=== PATIENT | female | born 1985 | race Caucasian/White ===

== ENCOUNTER 2016-12-09 08:44 | Emergency (ER) | payer BC ==
[2016-12-09] MEDS ORDERED: HYDROmorphone 1 MG/ML 1 ML SYRINGE IVP STA (09:01)
[2016-12-09] MEDS ORDERED: ONDANSETRON 4 MG/2 ML VIAL IVP STA (09:01)
[2016-12-09] MEDS ORDERED: SODIUM CHLORIDE 0.9% 1,000 ML IV STA ×2 (09:01)
--- NOTE | 2016-12-09 09:09 | ED ---
General Adult HPI - General Chief complaint: Abdominal Pain Stated complaint: RT SIDE FLANK PAIN Time Seen by Provider: 12/09/16 08:55 Source: patient, RN notes reviewed Mode of arrival: ambulatory Limitations: no limitations - History of Present Illness Initial comments: Patient is a 31-year-old female who presents emergency room today with a chief complaint of right upper quadrant pain radiating around to the back. She states it started this morning proxy 7 AM after waking up. She states she was going to get herself a soda pop to drink. She states the pain has been somewhat constant sharp type pain that she currently rates a /10. States never experienced anything similar. She denies any other complaints or associated symptoms. Patient denies any recent fever, chills, shortness of breath, chest pain, nausea or vomiting, numbness or tingling, dysuria or hematuria, constipation or diarrhea, headaches or visual changes, or any other complaints. - Related Data Home Medications Medication Instructions Recorded Confirmed Citalopram Hydrobromide [CeleXA] 20 mg PO HS 12/09/16 12/09/16 Ibuprofen [Motrin] 800 mg PO Q6H PRN 12/09/16 12/09/16 Phentermine HCl [Adipex-P] 37.5 mg PO QAM 12/09/16 12/09/16 Topiramate [Trokendi Xr] 100 mg PO DAILY@1200 12/09/16 12/09/16 Allergies Allergy/AdvReac Type Severity Reaction Status Date / Time No Known Allergies Allergy Verified 12/09/16 08:58 Review of Systems ROS Statement: Those systems with pertinent positive or pertinent negative responses have been documented in the HPI. ROS Other: All systems not noted in ROS Statement are negative. Past Medical History Past Medical History: No Reported History Additional Past Medical History / Comment(s): meningitis History of Any Multi-Drug Resistant Organisms: MRSA Date of last positivie culture/infection: 04/07/2006 MDRO Source:: Unknown Additional Past Surgical History / Comment(s): FACIAL SURGERY, WRIST SURGERY Past Psychological History: No Psychological Hx Reported Smoking Status: Current every day smoker Past Alcohol Use History: Occasional Past Drug Use History: None Reported General Exam - General Exam Comments Initial Comments: General: The patient is awake and alert, in no distress, and does not appear acutely ill. Eye: Pupils are equal, round and reactive to light, extra-ocular movements are intact. No nystagmus. There is normal conjunctiva bilaterally. No signs of icterus. Ears, nose, mouth and throat: There are moist mucous membranes and no oral lesions. Neck: The neck is supple, there is no tenderness or JVD. Cardiovascular: There is a regular rate and rhythm. No murmur, rub or gallop is appreciated. Respiratory: Lungs are clear to auscultation, respirations are non-labored, breath sounds are equal. No wheezes, stridor, rales, or rhonchi. Gastrointestinal: No appearance abdomen. Normal bowel sounds. Abdomen soft on palpation. Patient does have tenderness in the right upper quadrant. Mild tenderness in the right CVA. No rebound tenderness. No guarding. Musculoskeletal: Normal ROM, no tenderness. Strength 5/5. Sensation intact. Pulses equal bilaterally 2+. Neurological: A&O x 3. CN II-XII intact, There are no obvious motor or sensory deficits. Coordination appears grossly intact. Speech is normal. Skin: Skin is warm and dry and no rashes or lesions are noted. Psychiatric: Cooperative, appropriate mood & affect, normal judgment. Limitations: no limitations Course Vital Signs 12/09/16 08:45 Temperature 97.2 F L Pulse Rate 73 Respiratory 18 Rate Blood Pressure 110/76 O2 Sat by Pulse 100 Oximetry Medical Decision Making - Medical Decision Making Patient reexamined at this time shows no signs of distress. Resting comfortably in the stretcher. Ultrasound is negative for any evidence of cholecystitis. Patient's labs been reviewed unremarkable. Results were discussed with the patient. At this time patient feeling comfortable be discharged home advised follow-up the family doctor. Advised return to emergency room if symptoms increase worsen or for any other concerns. - Lab Data Result diagrams: 12/09/16 09:05 12/09/16 09:05 Lab Results 12/09/16 12/09/16 12/09/16 Range/Units 09:05 09:05 09:05 WBC 6.1 (3.8-10.6) k/uL RBC 3.92 (3.80-5.40) m/uL Hgb 12.5 (11.4-16.0) gm/dL Hct 38.5 (34.0-46.0) % MCV 98.1 (80.0-100.0) fL MCH 31.8 (25.0-35.0) pg MCHC 32.4 (31.0-37.0) g/dL RDW 13.4 (11.5-15.5) % Plt Count 295 (150-450) k/uL Neutrophils % 59 % Lymphocytes % 31 % Monocytes % 5 % Eosinophils % 3 % Basophils % 1 % Neutrophils # 3.7 (1.3-7.7) k/uL Lymphocytes # 1.9 (1.0-4.8) k/uL Monocytes # 0.3 (0-1.0) k/uL Eosinophils # 0.2 (0-0.7) k/uL Basophils # 0.0 (0-0.2) k/uL Sodium 140 (137-145) mmol/L Potassium 4.2 (3.5-5.1) mmol/L Chloride 111 H (98-107) mmol/L Carbon Dioxide 21 L (22-30) mmol/L Anion Gap 8 mmol/L BUN 15 (7-17) mg/dL Creatinine 0.84 (0.52-1.04) mg/dL Est GFR (MDRD) Af Amer >60 (>60 ml/min/1.73 sqM) Est GFR (MDRD) Non-Af >60 (>60 ml/min/1.73 sqM) Glucose 77 (74-99) mg/dL Calcium 9.1 (8.4-10.2) mg/dL Total Bilirubin 0.4 (0.2-1.3) mg/dL AST 17 (14-36) U/L ALT 31 (9-52) U/L Alkaline Phosphatase 53 (38-126) U/L Total Protein 6.4 (6.3-8.2) g/dL Albumin 3.9 (3.5-5.0) g/dL Amylase 31 (30-110) U/L Lipase 63 (23-300) U/L Urine Color Urine Appearance (Clear) Urine pH (5.0-8.0) Ur Specific [place] (1.001-1.035) Urine Protein (Negative) Urine Glucose (UA) (Negative) Urine Ketones (Negative) Urine Blood (Negative) Urine Nitrite (Negative) Urine Bilirubin (Negative) Urine Urobilinogen (<2.0) mg/dL Ur Leukocyte Esterase (Negative) Urine RBC (0-5) /hpf Urine WBC (0-5) /hpf Ur Squamous Epith Cells (0-4) /hpf Urine Bacteria (None) /hpf Urine Mucus (None) /hpf Urine HCG, Qual Not Detected (Not Detectd) 12/09/16 Range/Units 09:05 WBC (3.8-10.6) k/uL RBC (3.80-5.40) m/uL Hgb (11.4-16.0) gm/dL Hct (34.0-46.0) % MCV (80.0-100.0) fL MCH (25.0-35.0) pg MCHC (31.0-37.0) g/dL RDW (11.5-15.5) % Plt Count (150-450) k/uL Neutrophils % % Lymphocytes % % Monocytes % % Eosinophils % % Basophils % % Neutrophils # (1.3-7.7) k/uL Lymphocytes # (1.0-4.8) k/uL Monocytes # (0-1.0) k/uL Eosinophils # (0-0.7) k/uL Basophils # (0-0.2) k/uL Sodium (137-145) mmol/L Potassium (3.5-5.1) mmol/L Chloride (98-107) mmol/L Carbon Dioxide (22-30) mmol/L Anion Gap mmol/L BUN (7-17) mg/dL Creatinine (0.52-1.04) mg/dL Est GFR (MDRD) Af Amer (>60 ml/min/1.73 sqM) Est GFR (MDRD) Non-Af (>60 ml/min/1.73 sqM) Glucose (74-99) mg/dL Calcium (8.4-10.2) mg/dL Total Bilirubin (0.2-1.3) mg/dL AST (14-36) U/L ALT (9-52) U/L Alkaline Phosphatase (38-126) U/L Total Protein (6.3-8.2) g/dL Albumin (3.5-5.0) g/dL Amylase (30-110) U/L Lipase (23-300) U/L Urine Color Yellow Urine Appearance Clear (Clear) Urine pH 5.5 (5.0-8.0) Ur Specific [place] 1.014 (1.001-1.035) Urine Protein Negative (Negative) Urine Glucose (UA) Negative (Negative) Urine Ketones Negative (Negative) Urine Blood Negative (Negative) Urine Nitrite Negative (Negative) Urine Bilirubin Negative (Negative) Urine Urobilinogen <2.0 (<2.0) mg/dL Ur Leukocyte Esterase Trace H (Negative) Urine RBC <1 (0-5) /hpf Urine WBC 2 (0-5) /hpf Ur Squamous Epith Cells 5 H (0-4) /hpf Urine Bacteria Rare H (None) /hpf Urine Mucus Rare H (None) /hpf Urine HCG, Qual (Not Detectd) Disposition Clinical Impression: Abdominal pain Disposition: HOME SELF-CARE Condition: Good Instructions: Abdominal Pain (ED) Additional Instructions: Please use medication as discussed. Please follow-up with family doctor in the next 2 days of symptoms have not improved. Please return to emergency room if the symptoms increase or worsen or for any other concerns. Referrals: Luc Salas MD [Primary Care Provider] - 1-2 days Time of Disposition: 10:28
[2016-12-09 09:24] LABS: Basophils % (A) 1 %; CH 32.5; CHCM 33.3; Eosinophils # (A) 0.2 k/uL (0-0.7); Eosinophils % (A) 3 %; HCT 38.5 % (34.0-46.0); HDW 2.36; HGB 12.5 gm/dL (11.4-16.0); Luc # (Auto) 0.12; Luc % (Auto) 2; Lymphocytes # (A) 1.9 k/uL (1.0-4.8); Lymphocytes % (A) 31 %; MCH 31.8 pg (25.0-35.0); MCHC 32.4 g/dL (31.0-37.0); MCV 98.1 fL (80.0-100.0); Mean Platelet Volume 7.6; Monocytes # (A) 0.3 k/uL (0-1.0); Monocytes % (A) 5 %; Neutrophils # (A) 3.7 k/uL (1.3-7.7); Neutrophils % (A) 59 %; RBC 3.92 m/uL (3.80-5.40); RDW 13.4 % (11.5-15.5); WBC 6.1 k/uL (3.8-10.6); WBC (Perox) 6.65
[2016-12-09 09:33] LABS: ALT 31 U/L (9-52); AST 17 U/L (14-36); Alkaline Phosphatase 53 U/L (38-126); Amylase 31 U/L (30-110); Anion Gap 8 mmol/L; Appearance,Urine Clear (Clear); Bacteria,Urine Rare /hpf; Bilirubin,Urine Negative (Negative); Blood Urea Nitrogen 15 mg/dL (7-17); Calcium 9.1 mg/dL (8.4-10.2); Carbon Dioxide 21 mmol/L (22-30); Chloride 111 mmol/L (98-107); Glucose 77 mg/dL (74-99); Glucose,Urine (UA) Negative (Negative); Ketones,Urine Negative (Negative); Leukocyte Esterase,Urine Trace (Negative); Mucus,Urine Rare /hpf; Nitrite,Urine Negative (Negative); Non-African American GFR(MDRD) >60 (>60 ml/min/1.73 sqM); PH, Urine 5.5 (5.0-8.0); Particle Count 3218; Potassium 4.2 mmol/L (3.5-5.1); Protein,Urine Negative (Negative); RBC,Urine <1 /hpf (0-5); Sodium 140 mmol/L (137-145); Specific Gravity,Urine 1.014 (1.001-1.035); Squamous Epithelial Cell,Urine 5 /hpf (0-4); Total Bilirubin 0.4 mg/dL (0.2-1.3); Total Protein 6.4 g/dL (6.3-8.2); UA Billing (MACRO vs. MICRO) MICRO; Urobilinogen,Urine <2.0 mg/dL (<2.0); WBC,Urine 2 /hpf (0-5)
--- NOTE | 2016-12-09 10:06 | US ---
EXAMINATION TYPE: US abdomen limited DATE OF EXAM: 12/09/2016 COMPARISON: NONE CLINICAL HISTORY: Pain. RUQ/epigastric pain EXAM MEASUREMENTS: Liver Length: 16.3 cm Gallbladder Wall: 0.3 cm CBD: 0.3 cm Right Kidney: 10.1 x 3.5 x 5.0 cm Pancreas: visualized portions appear wnl, duct = 0.2cm Liver: wnl Gallbladder: no evidence of stones Evidence for sonographic Whitney's sign: patient on pain medication CBD: appears wnl Right Kidney: no evidence of hydronephrosis or mass and the cortical medullary differentiation is ma intained. There is no ascites. IMPRESSION: No significant abnormality is evident
[2016-12-09 10:38] VITALS: BP 96/59; PULSE 60; RESP 16; TEMP 97.6
== END 2016-12-09 10:38 | disposition home or self-care (01) ==
LOC: EC 08:44
DX: R10.11 Right upper quadrant pain (principal); M54.9 Dorsalgia, unspecified; F17.200 Nicotine dependence, unspecified, uncomplicated; Z79.899 Other long term (current) drug therapy
CPT/HCPCS: 36415; 80053; 82150; 83690; 85025; 81001; 81025; 76705; 99284; 96374; 96375; 96361; J2405; J1170

== ENCOUNTER → 2017-08-24 | Outpatient (CLI) | payer BC ==
[2017-08-24 11:58] LABS: HCT 37.7 % (34.0-46.0); HGB 12.5 gm/dL (11.4-16.0); MCHC 33.3 g/dL (31.0-37.0); MCV 96.3 fL (80.0-100.0); Mean Platelet Volume 6.9; Platelet Count 269 k/uL (150-450); RBC 3.91 m/uL (3.80-5.40); RDW 12.7 % (11.5-15.5); WBC 7.8 k/uL (3.8-10.6)
[2017-08-24 12:06] LABS: ALT 16 U/L (9-52); AST 16 U/L (14-36); Alkaline Phosphatase 58 U/L (38-126); Anion Gap 12 mmol/L; Blood Urea Nitrogen 19 mg/dL (7-17); Calcium 9.5 mg/dL (8.4-10.2); Carbon Dioxide 23 mmol/L (22-30); Chloride 107 mmol/L (98-107); Glucose 121 mg/dL (74-99); Potassium 4.1 mmol/L (3.5-5.1); Sodium 142 mmol/L (137-145); Total Bilirubin 0.2 mg/dL (0.2-1.3); Total Protein 6.5 g/dL (6.3-8.2)
[2017-08-24 12:23] LABS: T4, Free (Free Thyroxine) 0.87 ng/dL (0.78-2.19)
[2017-08-24 14:17] LABS: Erythrocyte Sedimentation Rate 9 mm/hr (0-20)
[2017-08-24 16:31] LABS: Rheumatoid Factor 4 IU/mL (0-15)
== END | disposition home or self-care (01) ==
LOC: LABWHC1 11:14
PROVIDERS: ATTEND Internal Medicine
DX: R53.82 Chronic fatigue, unspecified (principal)
CPT/HCPCS: 36415; 80053; 84439; 84443; 84481; 85027; 85652; 86038; 86431

== ENCOUNTER 2022-08-23 06:00 | Inpatient (IN) | payer BC ==
[2022-08-23] MEDS ORDERED: OXYTOCIN 10 UNIT/ML 1 ML VIAL IM PRN (06:51)
[2022-08-23] MEDS ORDERED: LIDOCAINE 0.5% (PF) 5 MG/ML (50 ML SDV) SQ PRN (06:51)
[2022-08-23] MEDS ORDERED: TERBUTALINE 1 MG/ML VIAL SQ PRN (06:51)
[2022-08-23] MEDS ORDERED: CARBOPROST TROMETHAMINE 250 MCG/ML 1 ML AMP IM PRN (06:51)
[2022-08-23] MEDS ORDERED: TRANEXAMIC ACID IN NACL,ISO-OS 1,000 MG in EMPTY BAG 1 BAG IV PRN (06:51)
[2022-08-23] MEDS ORDERED: miSOPROStoL 200 MCG TAB PO PRN (06:51)
[2022-08-23] MEDS ORDERED: METHYLERGONOVINE 0.2 MG/ML 1 ML AMP IM PRN (06:51)
[2022-08-23] MEDS ORDERED: OXYTOCIN 30 UNITS/500 ML NS 30 UNIT in SALINE 1 500ML.BAG IV SCH (07:00)
[2022-08-23] MEDS: LACTATED RINGERS 1,000 ML IV SCH ×2 (07:00→13:23)
[2022-08-23 07:22] LABS: Basophils # (A) 0.1 k/uL (0-0.2); Basophils % (A) 0 %; Eosinophils # (A) 0.2 k/uL (0-0.7); Eosinophils % (A) 1 %; HCT 35.4 % (34.0-46.0); HGB 12.3 gm/dL (11.4-16.0); Lymphocytes # (A) 2.2 k/uL (1.0-4.8); Lymphocytes % (A) 13 %; MCH 34.6 pg (25.0-35.0); MCHC 34.8 g/dL (31.0-37.0); MCV 99.4 fL (80.0-100.0); Mean Platelet Volume 7.9; Monocytes # (A) 0.4 k/uL (0-1.0); Monocytes % (A) 3 %; Neutrophils # (A) 14.6 k/uL (1.3-7.7); Neutrophils % (A) 82 %; Platelet Count 325 k/uL (150-450); RBC 3.56 m/uL (3.80-5.40); RDW 13.3 % (11.5-15.5); WBC 17.7 k/uL (3.8-10.6)
[2022-08-23] MEDS ORDERED: BUTORPHANOL 1 MG/ML 1 ML VIAL IV PRN (08:46)
--- NOTE | 2022-08-23 08:52 | P.HPOB ---
History of Present Illness Chief Complaint: 39 and one sevenths weeks, elective induction, trial the patient is a 37-year-old 3 para 2 scissors or 2 admitted at 39 and one sevenths weeks as established by 9 week ultrasound. She is admitted for trial of labor after previous section having had a successful vaginal in her first . Her has been essentially uncomplicated though she falls into the category of advanced maternal age and had a negative trisomy screen. She also is expressed the desire for tubal ligation should she require section. Group B strep status is negative. Obstetrical history: 3 para 2001 with 1 term vaginal delivery followed by 1 term section done for nonreassuring heart tones. Current statistics are listed in history present illness. EDC of 08/29/2022 was established by 9 week ultrasound. Laboratory workup demonstrates a blood type of O+ with a negative antibody screen. Rubella status is immune. The remainder of the laboratory workup was within normal limits. Early Glucola was elevated but followed by a normal three-hour glucose tolerance test. Second trimester Glucola was within normal limits. Group B strep status is negative. Gynecologic history: Unremarkable with no history of any infections to include STDs. Review of Systems review of systems is confined to history of present illness. Past Medical History Past Medical History: No Reported History Additional Past Medical History / Comment(s): meningitis, ADHD, Fibromyalgia, GERD, GDM with previous History of Any Multi-Drug Resistant Organisms: MRSA Date of last positivie culture/infection: 04/07/2006 MDRO Source:: Unknown Past Surgical History: Section Additional Past Surgical History / Comment(s): FACIAL SURGERY, WRIST SURGERY Past Anesthesia/Blood Transfusion Reactions: No Reported Reaction Past Psychological History: ADD/ADHD Smoking Status: Current every day smoker Past Alcohol Use History: Occasional Additional Past Alcohol Use History / Comment(s): half ppd Past Drug Use History: None Reported Medications and Allergies Home Medications Medication Instructions Recorded Confirmed Type Pantoprazole Sodium [Protonix] 20 mg PO DAILY 08/23/22 08/23/22 History Vit No.179/Iron/Folic 1 tab PO DAILY 08/23/22 08/23/22 History [ Tablet] Allergies Allergy/AdvReac Type Severity Reaction Status Date / Time No Known Allergies Allergy Verified 12/09/16 08:58 Exam Vital Signs Temp Pulse Resp BP Pulse Ox 08/23/22 06:48 97.8 F 95 16 113/83 98 Intake and Output 08/22/22 08/23/22 08/23/22 22:59 06:59 14:59 Other: Weight 87.997 kg in general, this is a well-developed, well-nourished white female in no acute distress. Her heart has a regular rhythm and rate without murmur Her lungs are clear to auscultation bilaterally in all flores. Her abdomen is gravid, nondistended, has normal active bowel sounds, soft, nontender, and without any palpable masses aside from uterine fundus. Her extremities are without any cyanosis, clubbing, or edema and are nontender to palpation bilaterally. Digital cervical examination done straights her cervix to remain fingertip, 70% effaced, the vertex in presentation at -2 station. Artificial rupture of membranes could not be accomplished. Results Result Diagrams: 08/23/22 07:00 Abnormal Lab Results - Last 24 Hours (Table) 08/23/22 Range/Units 07:00 WBC 17.7 H (3.8-10.6) k/uL RBC 3.56 L (3.80-5.40) m/uL Neutrophils # 14.6 H (1.3-7.7) k/uL Assessment and Plan (1) Term Current Visit: Yes Status: Acute Code(s): Z34.90 - ENCNTR FOR SUPRVSN OF NORMAL , UNSP, UNSP TRIMESTER SNOMED Code(s): 70751675 (2) Previous section Current Visit: Yes Status: Acute Code(s): Z98.891 - HISTORY OF UTERINE SCAR FROM PREVIOUS SURGERY SNOMED Code(s): 197178428 Plan: the patient is admitted for trial of labor after section. Given her previous section, she could not undergo cervical ripening. Pitocin augmentation has been started and she will continue to have close maternal and surveillance and expectant management will be practiced. Artificial rupture of membranes will be carried out as soon as feasible. She is a good candidate for either IV or epidural analgesia, whichever she may choose.
[2022-08-23] MEDS ORDERED: fentaNYL (PF) 50 MCG/ML 5 ML AMP ONE (13:30)
[2022-08-23] MEDS ORDERED: SODIUM CHLORIDE 0.9% 100 ML BAG ONE (13:30)
[2022-08-23] MEDS ORDERED: ROPIVACAINE 5 MG/ML 20 ML AMPULE ONE (13:30)
--- NOTE | 2022-08-23 18:27 | P.PROBDLV ---
Vaginal Delivery Note - . Vaginal Delivery Note: the patient is a 37-year-old 3 para 2 scissors or 2 admitted at 39 and one sevenths weeks by good dating parameters. She is admitted for elective induction of labor with a history of a previous section and requesting vaginal trial of labor. The risks and complications were thoroughly discussed. Her was otherwise essentially uncomplicated and, on labor and delivery, all signs were reassuring with a category 1 heart rate tracing at admission and throughout the labor process. group B strep status is negative. On labor and delivery, she had Pitocin augmentation started but was unable to have artificial rupture of membranes early this morning. I was able to achieve artificial rupture of membranes at about 11:00 in the morning at which time there was clear fluid noted. She then began to make fairly steady progress through the latent phase of labor and had an epidural catheter placed for analgesia. She progressed fairly quickly through the active phase of labor to complete and then pushed over the course of approximately 30 minutes to a normal spontaneous vaginal delivery, successful vaginal after section of a viable 7 lbs. 11 oz. baby boy with Apgars of 9 at 1 minute and 9 at 5 minutes delivered in the left occiput anterior position. The placenta was delivered spontaneously, intact, and grossly normal with a grossly normal, centrally inserted three-vessel cord. There was a small first-degree midline perineal laceration which was closed with a simple [id number] stitch of 3-0 chromic catgut without difficulty. Estimated blood loss for the case was approximately 200 mL. There were no complications. Both mother and infant are resting comfortably in recovery.
[2022-08-23] MEDS ORDERED: CALCIUM CARBONATE 500 MG CHEWABLE PO PRN (18:34)
[2022-08-23 19:01] VITALS: RESP 16
[2022-08-23] MEDS ORDERED: diphenhydrAMINE 25 MG CAP PO PRN (21:14)
[2022-08-23] MEDS ORDERED: SIMETHICONE 80 MG CHEWABLE PO PRN (21:14)
[2022-08-23] MEDS ORDERED: BENZOCAINE/MENTHOL SPRAY 1 GM/SPRAY AEROSOL TOPICAL PRN (21:14)
[2022-08-23] MEDS ORDERED: diphenhydrAMINE 50 MG CAP PO PRN (21:14)
[2022-08-23] MEDS ORDERED: ACETAMINOPHEN TAB 325 MG TAB PO PRN (21:14)
[2022-08-23] MEDS ORDERED: ZOLPIDEM 5 MG TAB PO PRN (21:14)
[2022-08-23] MEDS ORDERED: diphenhydrAMINE 50 MG/ML 1 ML VIAL IVP PRN ×2 (21:14)
[2022-08-23] MEDS: IBUPROFEN 600 MG TAB PO PRN (21:50)
[2022-08-23] MEDS: SENNOSIDES-DOCUSATE SODIUM 1 EACH TAB PO SCH (21:51)
[2022-08-24] MEDS: LACTATED RINGERS 1,000 ML IV SCH (04:56)
[2022-08-24 05:37] LABS: Basophils # (A) 0.1 k/uL (0-0.2); Basophils % (A) 0 %; Eosinophils # (A) 0.1 k/uL (0-0.7); Eosinophils % (A) 1 %; HCT 33.1 % (34.0-46.0); HGB 10.9 gm/dL (11.4-16.0); Lymphocytes # (A) 2.3 k/uL (1.0-4.8); Lymphocytes % (A) 13 %; MCH 33.8 pg (25.0-35.0); MCHC 32.9 g/dL (31.0-37.0); MCV 102.7 fL (80.0-100.0); Macrocytosis Slight; Mean Platelet Volume 8.1; Monocytes # (A) 0.5 k/uL (0-1.0); Monocytes % (A) 3 %; Neutrophils # (A) 14.1 k/uL (1.3-7.7); Neutrophils % (A) 82 %; Platelet Count 266 k/uL (150-450); RBC 3.22 m/uL (3.80-5.40); RDW 13.2 % (11.5-15.5); WBC 17.3 k/uL (3.8-10.6)
[2022-08-24] MEDS: IBUPROFEN 600 MG TAB PO PRN ×2 (05:46→14:02)
[2022-08-24] MEDS ORDERED: SENNOSIDES-DOCUSATE SODIUM 1 EACH TAB PO SCH ×2 (08:00→21:35)
--- NOTE | 2022-08-24 09:52 | P.DS ---
Providers Date of admission: 08/23/22 06:39 Expected date of discharge: 08/24/22 Attending physician: Melvin Gibson Primary care physician: Stated None - Discharge Diagnosis(es) (1) Term Current Visit: Yes Status: Acute (2) Previous section Current Visit: Yes Status: Acute (3) Vaginal after section Current Visit: Yes Status: Acute Hospital Course: the patient is a 37 year 3 para 2001 admitted at 39 and one sevenths weeks by good dating parameters perches admitted for elective induction/trial of labor after having had a previous section. She had a successful first vaginal followed by section in her second and has requested vaginal trial of labor. Her was uncomplicated. She is advanced maternal age and had negative screening for trisomy. Group B strep status is negative. On labor and delivery, she had Pitocin started and later had artificial rupture of membranes for clear fluid. She had an epidural catheter placed for analgesia and progressed fairly quickly to complete. She pushed to a normal spontaneous vaginal delivery of a viable 7 lbs. 11 oz. baby boy with Apgars of 9 at 1 minute and 9 at 5 minutes, successful vaginal after section. Her course was unremarkable with vital signs remained stable and her temperature was afebrile throughout. She was deemed stable for discharge on day #1 was discharged home to follow-up in the office in 6 weeks' time routinely. Discharge instructions included calling for significantly increased bleeding or foul-smelling lochia, significantly increased fever abdominal pain, perineal complaints, breast complaints, or anything else that concerned her. She is additionally instructed to have nothing in the vagina for at least 6 weeks time to include intercourse. She understood her instructions and agrees to follow up as noted above. Discharge medications included only [id number] analgesic pain medications. Maternal blood type is O+ and rubella status is immune. Procedures: #1. Pitocin induction #2. Artificial rupture of membranes #3. Epidural analgesia #4. Normal spontaneous vaginal delivery, successful #5. Repair of perineal laceration Patient Condition at Discharge: Stable Plan - Discharge Summary New Discharge Prescriptions: No Action Pantoprazole Sodium [Protonix] 20 mg PO DAILY Vit No.179/Iron/Folic [ Tablet] 1 tab PO DAILY Discharge Medication List Pantoprazole Sodium [Protonix] 20 mg PO DAILY 08/23/22 [History] Vit No.179/Iron/Folic [ Tablet] 1 tab PO DAILY 08/23/22 [History] Follow up Appointment(s)/Referral(s): Melvin Gibson MD [STAFF PHYSICIAN] - 6 Weeks Discharge Disposition: HOME SELF-CARE
[2022-08-24] MEDS: SENNOSIDES-DOCUSATE SODIUM 1 EACH TAB PO SCH (14:30)
[2022-08-24 16:38] VITALS: BP 136/82; PULSE 66; TEMP 98.7
== END 2022-08-24 18:15 | disposition home or self-care (01) | DRG 806 ==
LOC: 4FBP 06:39
PROVIDERS: ADMIT Obstetrics & Gynecology; ATTEND Obstetrics & Gynecology
DX: O34.219 Maternal care for unspecified type scar from previous cesarean delivery (principal); O99.354 Diseases of the nervous system complicating childbirth; Z37.0 Single live birth; M79.7 Fibromyalgia; O99.344 Other mental disorders complicating childbirth; F90.9 Attention-deficit hyperactivity disorder, unspecified type; O99.334 Smoking (tobacco) complicating childbirth; F17.210 Nicotine dependence, cigarettes, uncomplicated; Z3A.39 39 weeks gestation of pregnancy; Z28.310 Unvaccinated for COVID-19; O70.0 First degree perineal laceration during delivery; N85.8 Other specified noninflammatory disorders of uterus; O99.619 Diseases of the digestive system complicating pregnancy, unspecified trimester; K21.9 Gastro-esophageal reflux disease without esophagitis; Z79.899 Other long term (current) drug therapy; Z86.61 Personal history of infections of the central nervous system; Z86.14 Personal history of Methicillin resistant Staphylococcus aureus infection; Z86.32 Personal history of gestational diabetes
CPT/HCPCS: 85025; 86850; 86900; 86901

== ENCOUNTER → 2024-01-20 | Outpatient (CLI) | payer BC ==
[2024-01-20 15:01] LABS: Basophils # (A) 0.08 X 10*3/uL (0.00-0.10); Basophils % (A) 1.5 %; Eosinophils # (A) 0.25 X 10*3/uL (0.04-0.35); Eosinophils % (A) 4.6 %; HCT 35.6 % (37.2-46.3); HGB 11.4 g/dL (12.0-15.0); Lymphocytes # (A) 1.51 X 10*3/uL (0.90-5.00); Lymphocytes % (A) 27.6 %; MCH 30.6 pg (27.0-32.0); MCV 95.7 FL (80.0-97.0); Mean Platelet Volume 9.4 FL (9.5-12.2); Monocytes # (A) 0.47 X 10*3/uL (0.20-1.00); Monocytes % (A) 8.6 %; NRBC Per 100 WBC 0 X 10*3/uL (0.00-0.01); Neutrophils # (A) 3.15 X 10*3/uL (1.80-7.70); Neutrophils % (A) 57.3 %; Platelet Count 319 X 10*3/uL (140-440); RBC 3.72 X 10*6/uL (4.10-5.20); RDW 17.1 % (11.5-14.5); WBC 5.48 X 10*3/uL (4.50-10.00)
[2024-01-20 15:22] LABS: ALT 17 U/L (8-44); AST 19 U/L (13-35); Albumin 4.1 g/dL (3.8-4.9); Albumin/Globulin Ratio 1.78 Ratio (1.60-3.17); Alkaline Phosphatase 65 U/L (41-126); BUN/Creat Ratio 16.83 Ratio (12.00-20.00); Bilirubin, Conjugated <0.20 mg/dL (0.20-0.40); Blood Urea Nitrogen 10.1 mg/dL (9.0-27.0); Calcium 9.3 mg/dL (8.7-10.3); Carbon Dioxide 24.1 mmol/L (21.6-31.8); Chloride 103 mmol/L (96-109); Globulin 2.3 g/dL (1.6-3.3); Glucose 86 mg/dL (70-110); Sodium 141 mmol/L (135-145); Total Bilirubin <0.2 mg/dL (0.3-1.2); Total Protein 6.4 g/dL (6.2-8.2)
== END | disposition home or self-care (01) ==
LOC: LABWHC1 09:26
PROVIDERS: ATTEND Internal Medicine Infectious Disease
DX: B69.89 Cysticercosis of other sites (principal); M00.012 Staphylococcal arthritis, left shoulder; M46.1 Sacroiliitis, not elsewhere classified
CPT/HCPCS: 36415; 80048; 80076; 85025; 86140